=== PATIENT | male | born 1950 | race Caucasian/White ===

== ENCOUNTER → 2018-08-18 | Outpatient (CLI) | payer BC ==
--- NOTE | 2018-08-19 10:25 | PCVCIMAG ---
APPROVED REPORT Study performed: 08/18/2018 15:28:51 Exam: Stress Echocardiogram Indication: CAD s/p [place] Patient Location: Echo lab Stress Nurse: Zakiya Bhagat RN Status: routine Ht: 5 ft 9 in HR: 82 bpm BP: 150/90 mmHg Rhythm: NSR Medical History Medical History: CAD s/p [place], Smoking, HTN Procedure The patient underwent an Exercise Stress Test using the Jorje Protocol. Blood pressure, heart rate, and EKG were monitored. An Echocardiogram was performed by biological lab technician in four stages in quad fashion. At peak stress, four selected images were obtained and placed side by side with resting images for comparison. Stress Test Details Stress Test: Exercise stress testing was performed using a Jorje protocol. HR Resting HR: 82 bpmMax Heart Rate (APMHR): 150 bpm Max HR Achieved: 153 bpmTarget HR (85% APMHR): 127 bpm % of APMHR: 102 Recovery HR: 83 bpm HR response to stress: Normal HR response to stress BP Resting BP: 150/90 mmHg Max BP: 190/90 mmHg Recovery BP: 132/72 mmHg BP response to stress: Normal blood pressure response to stress. ECG Resting ECG: Sinus Rhythm Stress ECG: Sinus Rhythm Recovery ECG: Sinus Rhythm Clinical Reason for Termination: Maximal effort Exercise duration: 9 min sec Highest Stage Achieved: Stage 3: 3.4 mph at 14% grade. Exercise capacity: 10.10 METs Overall Exercise Capacity for Age: Normal Pre-Stress Echo The resting Echocardiogram showed normal left ventricular contractility with an estimated Ejection Fraction of about 50%. Fixed anterior apical hypokinesis Post-Stress Echo The stress Echocardiogram showed normal left ventricular contractility with an estimated Ejection Fraction of about 55-60%. Fixed anterior apical hypokinesis. No new regional wall motion abnormality. Conclusion Clinical Response: Non-ischemic Exercise Capacity: Average Stress ECG Response: Non-ischemic Stress Echo Images: Non-ischemic Other Information Study Quality: Technically Limited
== END | disposition home or self-care (01) ==
LOC: PCVCIMAG 15:13
PROVIDERS: ATTEND Internal Medicine Cardiovascular Disease
DX: I25.10 Atherosclerotic heart disease of native coronary artery without angina pectoris (principal); I10 Essential (primary) hypertension; E78.00 Pure hypercholesterolemia, unspecified; I25.2 Old myocardial infarction; R07.89 Other chest pain; E78.5 Hyperlipidemia, unspecified; Z72.0 Tobacco use
CPT/HCPCS: 93325; 93351